=== PATIENT | female | born 1935 | race Caucasian/White ===

== ENCOUNTER 2016-12-30 20:21 | Emergency (ER) | payer MEDICARE, OTHER ==
--- NOTE | ~2016-12-30 | EKG ---
PATIENT: SERA BOSCH UNIT #: [id number] Ventricular Rate: 120 BPM Atrial Rate: 326 BPM QRS Duration: 62 ms Q-T Interval: 404 ms QTC Calculation(Bezet): 570 ms Calculated R Jber: 63 degrees Calculated T Jber: -159 degrees Diagnosis Line: Atrial fibrillation with rapid ventricular Diagnosis Line: response Diagnosis Line: Low voltage QRS Diagnosis Line: Septal infarct , age undetermined Diagnosis Line: Marked ST abnormality, possible lateral Diagnosis Line: subendocardial injury Diagnosis Line: Abnormal ECG Diagnosis Line: When compared with ECG of 22-SEP-2013 07:13, Diagnosis Line: Septal infarct is now Present Diagnosis Line: ST more depressed Lateral leads Diagnosis Line: Confirmed by HARDIK LADD MD ([id number]) on 12/31/2016 Diagnosis Line: 10:40:25 AM INTERPRETING MD: WILBERTO PENNINGTON
--- NOTE | ~2016-12-30 | CR72 ---
[facility] A Service of [facility] & [facility] RADIOLOGY TEXT RESULTS PATIENT: SERA BOSCH LOCATION: [facility] : 35 UNIT #: [id number] AGE: [address]: Prasanna Gold MD SEX: F ORDER DR: [id number] [facility] [address] [place], [place] [address] [id number] E MR#: [id number] Acc #: [id number] NAME: SERA BOSCH : 1935 SEX: F STUDY DATE/TIME: 12/30/2016 21:45 UNIT: [facility] ROOM: STUDY DESCRIPTION: CR Chest Single View Portable Attending Physician: Prasanna Gold M.D. Ordering Physician: Prasanna Gold M.D. Primary Care Physician: Felicia Blas A.P.R.N. MEDICAL IMAGING REPORT This report is preliminary unless electronic signature is present EXAM Single view chest. INDICATIONS Weakness for 2 days. Shortness of air. FINDINGS Single portable AP view of the chest compared to 05/04/2007. The heart is enlarged. There is some mildly increased interstitial markings, however, these appear to be chronic. No pleural effusion. IMPRESSION Cardiomegaly and chronic interstitial changes in both lungs. No new findings. Dictated by... Dawson Garcia M.D. THIS IS AN ELECTRONICALLY VERIFIED REPORT Dawson Garcia M.D. at 12/31/2016 10:52 AM ZEKE/carina TD: 12/30/2016 22:39 JOB #: [id number] MEDICAL IMAGING REPORT Page 1 of 1 COPY
[~2016-12-30 20:21] MED LIST: ACETAMINOPHEN; ACULAR10 ML OD; ALAVERT10 M1 PO; ATORVASTATIN CA10 MG PO; BENADRYL ALLERG1 TAB; BENADRYL PO; CALCIUM + D PO; CARDIZEM CD PO; CIPRO; COLACE PO; COUMADIN; COUMADIN PO; COUMADIN5 MG; DILTIAZEM 24HR360 M1 PO; FISH OIL 1,0001 CAP; FISH OIL PO; FLAX SEED OIL PO; FLAX SEED OIL1000 M1 PO; FLAX SEED OIL1000 MG PO; KEFLEX; LANOXIN; LOPRESSOR; LOTEMAX5 ML OD; METOPROLOL PO; MULTI-VITAMIN1 TAB; MULTI-VITAMIN1 TAB PO; OMEGA 3 KRILL OIL PO; PERCOCET PO; PRILOSEC PO; TOPROL XL; TOPROL XL PO; TYLENOL PM; VICODIN 5/500 T1 TAB; VICODIN 5/500 T1 TAB PO; XALATAN; XALATAN OU; ZESTRIL10 M1 PO; ZYMAR5 ML OD
[2016-12-30 22:27] LABS: URINE SOURCE CLEAN CATCH
[2016-12-30 22:31] LABS: URINE APPEARANCE CLEAR; URINE BILIRUBIN NEG (NEG); URINE BLOOD 2+ (NEG); URINE COLOR YELLOW; URINE GLUCOSE NEG (NEG); URINE KETONE NEG (NEG); URINE LEUKOCYTE ESTERASE NEG (NEG); URINE NITRATE POS (NEG); URINE PH 7.5 (5-8); URINE PROTEIN NEG (NEG); URINE SPECIFIC GRAVITY 1.008 (1.003-1.035)
[2016-12-30 22:33] LABS: CULTURE INDICATED? YES; URBCS1 AUWI 50-100 /[HPF] (0-2); URINE BACTERIA AUWI 4+ (NEGATIVE); URINE SQUAMOUS EPITHELIAL CELL NONE SEEN /[HPF]; UWBCS1 AUWI 0-2 (0-5)
[2016-12-30 22:49] LABS: BASOPHIL# 0.1 X10e3 (0-0.3); BASOPHIL% 0.5 % (0-2.5); DIFF IND NO; EOSINOPHIL% 0.2 % (0.0-7.0); HEMATOCRIT 41.4 % (35.0-45.0); HEMOGLOBIN 13.5 gm/dL (12.0-16.0); LYMPHOCYTE# 0.5 X10e3 (1.0-3.5); LYMPHOCYTE% 5.1 % (17.0-45.0); MEAN CELL VOLUME 97.5 FL (83-96); MEAN CORPUSCULAR HEMOGLOBIN 31.9 PG (28-34); MEAN CORPUSCULAR HGB CONC 32.7 g/dL (30-36); MEAN PLATELET VOLUME 7.7 FL (6.5-11.5); MONOCYTE# 1.4 X10e3 (0-1.0); MONOCYTE% 12.6 % (3.0-12.0); NEUTROPHIL# 8.7 X10e3 (1.5-7.1); NEUTROPHIL% 81.6 % (40-75); PLATELET COUNT 170 X10e3 (140-420); RED BLOOD COUNT 4.25 X10e (3.90-5.30); RED CELL DISTRIBUTION WIDTH 13.4 % (11.0-15.5); WHITE BLOOD COUNT 10.7 X10e3 (4.0-10.5)
[2016-12-30 22:59] LABS: INR 2.1; PROTHROMBIN TIME (PATIENT) 22.5 SECONDS (9.6-11.5)
[2016-12-30 23:16] LABS: ALBUMIN SERUM 3.8 g/dL (3.5-5.0); BILIRUBIN, DIRECT 0.3 mg/dL (0.0-0.2); BILIRUBIN,INDIRECT 0.9 mg/dL (0.0-0.9); BILIRUBIN,TOTAL 1.2 mg/dL (0.2-2.0); BUN/CREATININE RATIO 22.5; CALCIUM SERUM 8.6 mg/dL (8.4-10.2); CREATININE SERUM 0.8 mg/dL (0.6-1.4); GLOM FILT RATE Estimated 69.2 mL/min (>60); PROTEIN TOTAL SERUM 6.2 g/dL (6.0-8.3)
== END 2016-12-31 01:38 | disposition home or self-care (01) ==
LOC: CED 20:21
PROVIDERS: Emergency Medicine
DX: R60.0 Localized edema (principal); E78.5 Hyperlipidemia, unspecified; I10 Essential (primary) hypertension; Z90.710 Acquired absence of both cervix and uterus; Z88.5 Allergy status to narcotic agent; Z79.899 Other long term (current) drug therapy
CPT/HCPCS: 36415; 71010; 80048; 80076; 81003; 83880; 85025; 85610; 87086; 87088; 87186; 93005; 96374; 99283; J1940

== ENCOUNTER → 2017-01-01 | Outpatient (CLI) | payer MEDICARE, OTHER ==
--- NOTE | ~2017-01-01 | CR170 ---
[facility] A Service of [facility] RADIOLOGY TEXT RESULTS PATIENT: SERA BOSCH LOCATION: [facility] : 35 UNIT #: [id number] AGE: [address]: Felicia Blas APRN SEX: F ORDER DR: [id number] [id number] [facility] [place], [place] [address] [id number] O MR#: [id number] Acc #: [id number] NAME: SERA BOSCH : 1935 SEX: F STUDY DATE/TIME: 01/01/2017 16:47 UNIT: [facility] ROOM: STUDY DESCRIPTION: CR Knee 2 Views Rt Attending Physician: Felicia Blas A.P.R.N. Referring Physician: Felicia Blas A.P.R.N. Ordering Physician: Felicia Blas A.P.R.N. Primary Care Physician: Felicia Blas A.P.R.N. MEDICAL IMAGING REPORT This report is preliminary unless electronic signature is present EXAM Right knee HISTORY Knee pain, swelling and redness from chronic infection over the past 2 years with a fall 1 month ago. Evaluate knee prosthesis. COMPARISON 09/22/2016. TECHNIQUE 2 views of the knee were obtained. FINDINGS Alignment and position across the prosthesis is unchanged. There is no radiographic evidence of loosening. No effusion is noted. No acute fractures are seen. IMPRESSION No change from the previous examination. The knee prosthesis appears in satisfactory alignment and position. Dictated by... Jonah Escalona M.D. THIS IS AN ELECTRONICALLY VERIFIED REPORT Jonah Escalona M.D. at 01/02/2017 11:28 AM RLF/francesco TD: 01/02/2017 10:09 JOB #: [id number] [facility] A Service of [facility] RADIOLOGY TEXT RESULTS PATIENT: SERA BOSCH LOCATION: [facility] : 35 UNIT #: [id number] AGE: [address]: Felicia Blas APRN SEX: F ORDER DR: MEDICAL IMAGING REPORT Page 1 of 1 COPY
--- NOTE | ~2017-01-01 | CR253 ---
[facility] A Service of [facility] & [facility] RADIOLOGY TEXT RESULTS PATIENT: SERA BOSCH LOCATION: [facility] : 35 UNIT #: [id number] AGE: [address]: Felicia Blas APRN SEX: F ORDER DR: [id number] [facility] [place] [address] [place], [place] [address] [id number] O MR#: [id number] Acc #: [id number] NAME: SERA BOSCH : 1935 SEX: F STUDY DATE/TIME: 01/01/2017 16:48 UNIT: [facility] ROOM: STUDY DESCRIPTION: CR Tibia and Fibula 2 Views Rt Attending Physician: Felicia Blas A.P.R.N. Referring Physician: Felicia Blas A.P.R.N. Ordering Physician: Felicia Blas A.P.R.N. Primary Care Physician: Felicia Blas A.P.R.N. MEDICAL IMAGING REPORT This report is preliminary unless electronic signature is present EXAM Right tibia and fibula. HISTORY Leg pain after falling prior to arrival. TECHNIQUE 2 views of the tibia and fibula were obtained. FINDINGS A knee prosthesis is noted. There is no evidence of a fracture, bone destruction, or radiodense foreign body. No acute bony abnormalities are seen. IMPRESSION No fracture noted. Dictated by... Jonah Escalona M.D. THIS IS AN ELECTRONICALLY VERIFIED REPORT Jonah Escalona M.D. at 01/02/2017 11:28 AM STEPHANY/patrick TD: 01/02/2017 10:11 JOB #: [id number] MEDICAL IMAGING REPORT Page 1 of 1 COPY
--- NOTE | ~2017-01-01 | US85 ---
[facility] A Service of [facility] RADIOLOGY TEXT RESULTS PATIENT: SERA BOSCH LOCATION: [facility] : 35 UNIT #: [id number] AGE: [address]: Felicia Blas APRN SEX: F ORDER DR: [id number] [id number] [facility]. [place], [place] [address] [id number] O MR#: [id number] Acc #: [id number] NAME: SERA BOSCH : 1935 SEX: F STUDY DATE/TIME: 01/01/2017 17:21 UNIT: [facility] ROOM: STUDY DESCRIPTION: [facility] Attending Physician: Felicia Blas A.P.R.N. Referring Physician: Felicia Blas A.P.R.N. Ordering Physician: Felicia Bals A.P.R.N. Primary Care Physician: Felicia Blas A.P.R.N. MEDICAL IMAGING REPORT This report is preliminary unless electronic signature is present EXAM Lower extremity ultrasound for DVT on the right. DATE OF EXAM 01/01/2017 INDICATIONS 81-year-old female with swelling of the right leg and pain in the right leg since a fall 2 days ago. TECHNIQUE Dimas-scale, color Doppler and spectral analysis of the right lower extremity was performed. COMPARISON No comparisons. FINDINGS The examination is negative. There is no DVT in the right lower extremity. There is mild edema. IMPRESSION 1. No DVT in the right lower extremity. 2. The examination has been marked STAT and results personally called to Felicia Blas at the time of this dictation. STAT * RESULT Dictated by... Surya Portillo M.D. [facility] A Service [facility] RADIOLOGY TEXT RESULTS PATIENT: SERA BOSCH LOCATION: [facility] : 35 UNIT #: [id number] AGE: [address]: Felicia Blas APRN SEX: F ORDER DR: THIS IS AN ELECTRONICALLY VERIFIED REPORT Surya Portillo M.D. at 01/01/2017 10:30 PM Tami TD: 01/01/2017 17:58 JOB #: [id number] MEDICAL IMAGING REPORT Page 1 of 1 COPY
== END | disposition home or self-care (01) ==
LOC: CNIV 16:01
DX: M79.89 Other specified soft tissue disorders (principal); M79.604 Pain in right leg; Z96.651 Presence of right artificial knee joint
CPT/HCPCS: 73560; 73590; 93971